=== PATIENT | male | born 1960 | race Caucasian/White ===

== ENCOUNTER → 2017-10-18 | Outpatient (CLI) | payer OTHER ==
[~2017-10-18] MED LIST: ASPIRIN325 PO; LIPITOR10 MG PO; LISINOPRIL20 MG PO; TOPROL XL25 MG PO
--- NOTE | ~2017-10-18 | PAINCON ---
[address] [address] PAIN MANAGEMENT CONSULTATION Name: MIRIAN LUCERO Room: [facility] Read#: [id number] Admission: 10/18/17 Attend Phys: Yevgeniy Barkley MD Discharge: Date of : 60 Report #: [id number] THIS REPORT FOR: //name// CC: TRIPP Barkley DATE OF SERVICE: 11/08/2017 PAIN CLINIC ASSESSMENT: 1. The patient does have some arthritic changes in his low back area. 2. Height 6 feet, weight 242 pounds, BMI is 33. 3. Vital signs: Blood pressure 143/82, heart rate 58, respiratory rate 16, room air saturation is 96%, temperature is 97.9. 4. Pain intensity 5-6/10. 5. Fall risk. The patient has not fallen in the last 3 months. 6. Blood thinner. The patient is not on a blood thinning medication. 7. Hypertension. The patient is being treated for hypertension. 8. Opioids greater than 6 weeks. The patient is not on an opioid regimen. 9. Risk assessment tool. 10. Functional assessment tool. 11. Recreational drug use. The patient denies use of recreational drugs. 12. Tobacco. The patient denies use of tobacco. 13. Alcohol. The patient denies significant alcohol use at this juncture. Did drink up to 8 alcoholic beverages per day in the past. PHYSICAL EXAMINATION: GENERAL: The patient is a well-developed, well-nourished white male. He appears his stated age. Affect is appropriate. Speech is fluent. HEENT: Normocephalic, atraumatic. Extraocular eye muscles intact. Sclerae is nonicteric. Hearing is within normal limits. NECK: Without JVD or adenopathy. Good range of motion. LUNGS: Clear to auscultation without rales or congestion. MUSCULOSKELETAL: Without significant kyphosis, lordosis, scoliosis. In the upper extremities, 5/5 for the major muscle groups without sensory changes. Lower extremities, the patient walks with some limp. Straight leg raise positive on the left with some pain and discomfort in the area of his "tailbone." History of back surgeries with well-healed scars in the lower midline area L4 to sacral area. The patient notes tingling with pins and needle sensation radiating down into his left foot. IMPRESSION: 1. Lumbar radicular pain with pain radiating down into the left foot with numbness, pins and needle sensation in the L1 distribution. 2. Symptomatic lumbar radiculopathy. 3. Displacement of lumbar intervertebral disk without myelopathy. 4. Lumbosacral [place]ondyl[place] [address] PAIN MANAGEMENT CONSULTATION Name: MIRIAN LUCERO Room: [facility] Read#: [id number] Admission: 10/18/17 Attend Phys: Yevgeniy Barkley MD Discharge: Date of : 60 Report #: [id number] 5. Post-laminectomy syndrome. 6. Chronic intractable pain. RECOMMENDATIONS: We discussed treatment options with the patient. Risks and benefits of an epidural steroid injection were discussed. Possible complications of the procedure were reviewed. The patient states that he has had injections in the past and gleaned benefit from these. He has returned today for treatment. He is experiencing pain, which is radiating down into the left leg with numbness and tingling involving his leg and down into his foot. He has had additional surgery since he has been seen in the pain clinic in 07/2015. An additional zuleika has been placed in the sacrum and in the L5 vertebral body. We explained that transforaminal epidural approach would be reasonable. Given that the patient has had some rearrangement of the anatomy after the surgery. He elects to proceed. PROCEDURE NOTE: The patient was taken to the procedure area. He was assisted in getting on the fluoroscopy table. His back was sterilely prepped with Betadine. 0.25% bupivacaine was infiltrated into this area. Fluoroscopy using an anterior, posterior as well as lateral approach was performed. A 20-gauge spinal needle was then advanced using fluoroscopy into the left transforaminal area using fluoroscopy for placement. After appropriate placement 0.25% bupivacaine was injected 1 mL. Total of 80 mg Depo-Medrol was then injected. The patient tolerated the procedure well. There were no complications. Pain level at discharge was 4/10. Total of 28 seconds fluoroscopy time was used. Band-Aid was applied. There was no drainage. He remained in the pain clinic for an appropriate amount of time. He will follow up in the future as needed. We would like to thank you for letting us participate in his care. We hope he continues to improve. By: [id number]. Viktor Barkley MD /RADHA
--- NOTE | 2017-11-30 13:50 | PAINCON ---
[address] [address] PAIN MANAGEMENT CONSULTATION Name: MIRIAN LUCERO Room: [facility] Espitia.#: [id number] Admission: 10/18/17 Attend Phys: Yevgeniy Barkley MD Discharge: Date of : 60 Report #: [id number] THIS REPORT FOR: //name// CC: Mirian Ramires MD FAM unknown Yevgeniy Barkley DATE OF SERVICE: 10/18/2017 CHIEF COMPLAINT: Low back pain down to the buttocks and tailbone. FOLLOWUP HISTORY: The patient is a 57-year-old gentleman who has been seen in the pain clinic by Dr. Devon Carballo. This is my first visit with the patient. He has returned to the pain clinic with complaints of low back pain. He is experiencing pain in his low back with pain radiating down his left buttocks and involving his tailbone. He has had problems since about 2014. As you may recall, he has undergone back surgery. He has had rods and screws placed in his low back for stabilization of his spine. He rates his pain as a 5-6 at this juncture. He describes his pain as very intense. As you may recall, he has had hip replacements as well. He is experiencing some tingling as well as pins and needle sensation down into his left foot. Notes that he avoids climbing stairs. Standing, sitting, walking, lifting and bending can be quite difficult. Finds his medications, use of cold and rest can be helpful. ALLERGIES: No known drug allergies. CURRENT MEDICATIONS: Aspirin 325 mg daily, Lipitor 10 mg daily, lisinopril 20 mg daily, metoprolol 25 mg 2 tablets, 50 mg. PAST MEDICAL HISTORY: 1. Dyslipidemia. 2. Hypertension. 3. Coronary artery disease. 4. Symptomatic left lumbar radiculopathy. 5. Lumbosacral spondylosis. 6. Chronic intractable pain. PAST SURGICAL HISTORY: Coronary artery bypass triple in 2002, leg surgery in 1979, tendon repair and transfer on the right foot in 2011, back surgery x 2 in 2012 and 2013. 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 REVIEW OF SYSTEMS: Questionnaire 12-point review indicates generally good health, heart trouble[place] [address] PAIN MANAGEMENT CONSULTATION Name: MIRIAN LUCERO Room: [facility]#: [id number] Admission: 10/18/17 Attend Phys: Yevgeniy Barkley MD Discharge: Date of : 60 Report #: [id number] LABORATORY DATA: X-ray of hip 2 views with pelvis, bilateral dated 09/19/2017 reveals indication of left hip pain. Findings: No evidence of acute fracture or dislocation. Changes of a prior left hip arthroplasty are seen. No significant abnormal lucency or signs of osteolysis about the left total hip arthroplasty. Minimal lucency about the distal femur stem measured less than 2 mm. Chronic ossific fragment along the right lateral acetabular margin. CT of lumbar spine without contrast dated 07/22/2017 with indication of L5-S1 facetectomy. Findings: Fluoroscopy intraoperative image of the left L5-S1 facetectomy. PAIN CLINIC ASSESSMENT: 1. The patient does have some arthritic changes in his low back area. 2. Height 6 feet, weight 242 pounds, BMI is 33. 3. Vital signs: Blood pressure 143/82, heart rate 58, respiratory rate 16, room air saturation is 96%, temperature is 97.9. 4. Pain intensity 5-6/10. 5. Fall risk. The patient has not fallen in the last 3 months. 6. Blood thinner. The patient is not on a blood thinning medication. 7. Hypertension. The patient is being treated for hypertension. 8. Opioids greater than 6 weeks. The patient is not on an opioid regimen. 9. Risk assessment tool. 10. Functional assessment tool. 11. Recreational drug use. The patient denies use of recreational drugs. 12. Tobacco. The patient denies use of tobacco. 13. Alcohol. The patient denies significant alcohol use at this juncture. Did drink up to 8 alcoholic beverages per day in the past. PHYSICAL EXAMINATION: GENERAL: The patient is a well-developed, well-nourished white male. He appears his stated age. Affect is appropriate. Speech is fluent. HEENT: Normocephalic, atraumatic. Extraocular eye muscles intact. Sclerae is nonicteric. Hearing is within normal limits. NECK: Without JVD or adenopathy. Good range of motion. LUNGS: Clear to auscultation without rales or congestion. MUSCULOSKELETAL: Without significant kyphosis, lordosis, scoliosis. In the upper extremities, 5/5 for the major muscle groups without sensory changes. Lower extremities, the patient walks with some limp. Straight leg raise positive on the left with some pain and discomfort in the area of his "tailbone." History of back surgeries with well-healed scars in the lower midline area L4 to sacral area. The patient notes tingling with pins and needle sensation radiating down into his left foot. IMPRESSION: 1. Lumbar radicular pain with pain radiating down into the left foot with numbness, pins and needle sensation in the L1 distribution. 2. Symptomatic lumbar radiculopathy. [address] [place] [address] PAIN MANAGEMENT CONSULTATION Name: MIRIAN LUCERO Room: [facility] Espitia#: [id number] Admission: 10/18/17 Attend Phys: Yevgeniy Barkley MD Discharge: Date of : 60 Report #: [id number] 3. Displacement of lumbar intervertebral disk without myelopathy. 4. Lumbosacral spondylosis without myelopathy. 5. Post-laminectomy syndrome. 6. Chronic intractable pain. RECOMMENDATIONS: We discussed treatment options with the patient. Risks and benefits of an epidural steroid injection were discussed. Possible complications of the procedure were reviewed. The patient states that he has had injections in the past and gleaned benefit from these. He has returned today for treatment. He is experiencing pain, which is radiating down into the left leg with numbness and tingling involving his leg and down into his foot. He has had additional surgery since he has been seen in the pain clinic in 07/2015. An additional zuleika has been placed in the sacrum and in the L5 vertebral body. We explained that transforaminal epidural approach would be reasonable. Given that the patient has had some rearrangement of the anatomy after the surgery. He elects to proceed. PROCEDURE NOTE: The patient was taken to the procedure area. He was assisted in getting on the fluoroscopy table. His back was sterilely prepped with Betadine. 0.25% bupivacaine was infiltrated into this area. Fluoroscopy using an anterior, posterior as well as lateral approach was performed. A 20-gauge spinal needle was then advanced using fluoroscopy into the left transforaminal area using fluoroscopy for placement. After appropriate placement 0.25% bupivacaine was injected 1 mL. Total of 80 mg Depo-Medrol was then injected. The patient tolerated the procedure well. There were no complications. Pain level at discharge was 4/10. Total of 28 seconds fluoroscopy time was used. Band-Aid was applied. There was no drainage. He remained in the pain clinic for an appropriate amount of time. He will follow up in the future as needed. We would like to thank you for letting us participate in his care. We hope he continues to improve. <ELECTRONICALLY SIGNED> By: Yevgeniy Barkley MD 11/30/17 [id number]. Viktor Barkley MD /[facility]
== END | disposition home or self-care (01) ==
LOC: M.PC 03:31
DX: M54.16 Radiculopathy, lumbar region (principal); G89.29 Other chronic pain; I10 Essential (primary) hypertension; M10.9 Gout, unspecified; M19.90 Unspecified osteoarthritis, unspecified site; Z87.19 Personal history of other diseases of the digestive system; Z88.8 Allergy status to other drugs, medicaments and biological substances; Z79.82 Long term (current) use of aspirin; Z79.899 Other long term (current) drug therapy